=== PATIENT | male | born 1960 | race Caucasian/White ===

== ENCOUNTER 2019-03-10 23:33 | Emergency (ER) | payer OTHER ==
[~2019-03-10] VITALS: Ht 177.8 cm; Wt 81.6 kg
[2019-03-10] MEDS ORDERED: CLONIDINE HCL 0.2 MG TABLET ONE (23:59)
[2019-03-11] MEDS ORDERED: CLONIDINE HCL 0.2 MG TABLET PO ONE
--- NOTE | 2019-03-11 00:30 | NUR ---
pt came in for his bp being elevated and wasn't given his medication because they wasn't no nurse at the facility
--- NOTE | 2019-03-11 01:00 | NUR ---
was given catapress early with little effect this one of the pt schedule medication
[2019-03-11] MEDS ORDERED: hydrALAZINE HCL 25 MG TABLET PO ONE (01:30)
[2019-03-11] MEDS ORDERED: hydrALAZINE HCL 25 MG TABLET ONE (01:30)
--- NOTE | 2019-03-11 02:00 | NUR ---
was given apresoline with some effect
--- NOTE | 2019-03-11 02:05 | NUR ---
ambulance pick up and delivery driver at 3:30 am number [phone]
--- NOTE | 2019-03-11 03:00 | NUR ---
pt was discharge to his facility via ambulance bp wnl discharge teaching given pt condition stable
[2019-03-11 03:55] VITALS: BP 136/80
== END 2019-03-11 03:00 | disposition home or self-care (01) ==
LOC: ER 23:36
DX: I10 Essential (primary) hypertension (principal)
CPT/HCPCS: A4663